=== PATIENT | female | born 1975 | race Caucasian/White ===

== ENCOUNTER 2018-11-30 16:34 | Outpatient (CLI) | payer OTHER ==
[2015-07-31 13:48] VITALS: BP 166/108
--- NOTE | 2018-12-02 12:44 | Diagnostic Imaging Report ---
BERNADINE CARLIN [facility] [address] [facility].[address] [id number] Report Submission Date: Nov 30, 2018 5:46:08 PM CDT Patient Study Name: DAVID GARNETT Date: Nov 30, 2018 4:31:36 PM CDT Modality Type: DX Gender: F Description: BILAT FEET 3 VIEW : 79 Institution: [facility] Physician: BERNADINE CARLIN BILATERAL FEET HISTORY: BUNIONS AND PAIN IN BOTH FEET. FINDINGS: Standing AP, lateral, and oblique views of the feet demonstrate severe hallux valgus deformity bilaterally with prominence of the dorsal medial aspect of the 1st metatarsal head with soft tissue swelling over this region consistent with prominent bunions bilaterally. Bilateral calcaneal spurs at the plantar fascia attachments are noted. No other acute bone or joint abnormality is seen aside from minimal hammertoe deformity of the 2nd digit bilaterally. IMPRESSION: Marked hallux valgus deformity and calcaneal spurs bilaterally. Electronically signed on Nov 30, 2018 5:46:08 PM CDT by: Barry NGUYEN
== END 2018-11-30 16:36 ==
LOC: RAD 16:34
PROVIDERS: ATTEND Podiatrist Foot & Ankle Surgery
DX: M20.11 Hallux valgus (acquired), right foot (principal)